=== PATIENT | female | born 1955 | race American Indian/Alaskan Native ===

== ENCOUNTER 2021-11-19 11:06 | Emergency (ER) | payer OTHER, MEDICARE ==
[2021-11-19 11:11] VITALS: BP 112/84
[2021-11-19] MEDS ORDERED: ACETAMINOPHEN 500 MG TAB PO ONE (20:32)
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
--- NOTE | 2021-11-19 21:14 | XRay Report ---
CHEST 2 VIEWS INDICATION / CLINICAL INFORMATION: chest pain. COMPARISON: None available. FINDINGS: SUPPORT DEVICES: None. HEART / MEDIASTINUM: No significant abnormality. LUNGS / PLEURA: No significant pulmonary or pleural abnormality. No pneumothorax. ADDITIONAL FINDINGS: No significant additional findings. IMPRESSION: 1. No acute findings. Signer Name: Blayne Saleem DO Signed: 11/19/2021 9:10 PM Workstation Name: [id number]
--- NOTE | 2021-11-19 21:15 | XRay Report ---
CERVICAL SPINE 5 VIEWS INDICATION / CLINICAL INFORMATION: neck pain. COMPARISON: None available. FINDINGS: VERTEBRAE: No acute fracture. There is straightening of the cervical lordosis which may be secondary to patient positioning versus muscle spasm. DISC SPACES / FACET JOINTS:There is scattered moderate to severe degenerative disc disease throughout the cervical spine, most pronounced at C4-C5 and C5-C6 PARASPINAL SOFT TISSUES:No significant abnormality. ADDITIONAL FINDINGS: None. Signer Name: Blayne Saleem DO Signed: 11/19/2021 9:11 PM Workstation Name: [id number]
--- NOTE | 2021-11-21 15:13 | Electrocardiograph Report ---
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
== END 2021-11-20 00:04 | disposition home or self-care (01) ==
LOC: ED 11:06
DX: S16.1XXA Strain of muscle, fascia and tendon at neck level, initial encounter (principal); R07.9 Chest pain, unspecified; V89.2XXA Person injured in unspecified motor-vehicle accident, traffic, initial encounter; Y93.89 Activity, other specified; Y92.89 Other specified places as the place of occurrence of the external cause; Y99.8 Other external cause status
CPT/HCPCS: 71046; 72040; 93005; 99283